=== PATIENT | male | born 1940 | race Caucasian/White ===

== ENCOUNTER 2022-06-23 19:27 | Emergency (ER) | payer MEDICARE, BC ==
[~2022-06-23] VITALS: Ht 188 cm; Wt 93.0 kg
--- NOTE | 2022-06-23 19:45 | NUR ---
PT BIBRA 77 C/O RT SIDED HEAD PAIN AND HEMATOMA S/P GLF WHILE TRYING TO PUT ON PANTS WITHOUT BENDING LEFT KNEE. PT AAOX4 BREATHING EVENLY AND UNLABORED. PT STATES THAT HE HAD LEFT KNEE REPLACEMENT 5 WEEKS AGO AND DIDNT WANT TO BEND HIS LEFT KNEE. PT FEEL BACKWARD AND HIT HIS HEAD ON ONE OF THE KNOBS ON THE DRESSER. PT HAS HEMATOMA ON HEAD AND ALSO C/O LEFT HIP PAIN FROM THE FALL. PT DENIES KO. PT ATTACHED TO MONITOR AND POX.
[2022-06-23] MEDS ORDERED: ACETAMINOPHEN ES 500 MG TABLET ONE (19:54)
--- NOTE | 2022-06-23 19:57 | NUR ---
TAKEN TO CT
[2022-06-23] MEDS ORDERED: ACETAMINOPHEN ES 500 MG TABLET PO ONE (20:00)
--- NOTE | 2022-06-23 20:25 | NUR ---
RETURNED FROM CT
--- NOTE | 2022-06-23 21:13 | NUR ---
Patient discharged to home in stable condition. Written and verbal after care instructions given. Patient verbalizes understanding of instruction. Pt ambulatory with a steady gait
[2022-06-23 21:16] VITALS: BP 129/78
== END 2022-06-23 21:13 | disposition home or self-care (01) ==
LOC: ER 19:32
DX: S00.03XA Contusion of scalp, initial encounter (principal); S30.0XXA Contusion of lower back and pelvis, initial encounter; R51.9 Headache, unspecified; E11.9 Type 2 diabetes mellitus without complications; E03.9 Hypothyroidism, unspecified; Z96.652 Presence of left artificial knee joint; W01.198A Fall on same level from slipping, tripping and stumbling with subsequent striking against other object, initial encounter; Y93.89 Activity, other specified; Y92.89 Other specified places as the place of occurrence of the external cause; Y99.8 Other external cause status
CPT/HCPCS: 70450-TC; 72125-TC; 72131-TC